=== PATIENT | male | born 1985 | race Caucasian/White ===

== ENCOUNTER 2020-12-31 05:14 | Emergency (ER) | payer SELFPAY ==
[2020-12-31 05:54] LABS: Absolute Lymphocytes (CBC) 2.3 K/uL (0.7-4.9); Basophils % 0.6 % (0-1.3); Lymphocytes % 14.4 % (15.3-44.8); MPV 8.9 fL (7.6-11.3); RBC Red Blood Cell Count 6.42 M/uL (4.33-5.43)
[2020-12-31] MEDS ORDERED: NA CHLORIDE 0.9% 1,000 ML ONE (06:06)
[2020-12-31 06:12] LABS: Protime INR 1.09
[2020-12-31 06:17] LABS: ALT/SGPT 41 U/L (12-78); AST/SGOT 20 U/L (15-37); Albumin 3.4 g/dL (3.4-5.0); Alkaline Phosphatase 86 U/L (45-117); BUN Blood Urea Nitrogen 13 mg/dL (7-18); Bicarbonate 26 mmol/L (21-32); Bilirubin Direct 0.1 mg/dL (0-0.2); Bilirubin Total 0.7 mg/dL (0.2-1.0); Glucose Level 108 mg/dL (74-106); Magnesium 2.2 mg/dL (1.8-2.4); NT PRO-BNP 8 pg/mL (<125); Potassium 4.4 mmol/L (3.5-5.1); Protein, Total 8.4 g/dL (6.4-8.2); Sodium Level 139 mmol/L (136-145); Troponin (Emerg Dept Use Only) 0.04 ng/mL (0.0-0.045)
[2020-12-31] MEDS ORDERED: CEFTRIAXONE 1000 MG/VIAL ONE (06:23)
[2020-12-31 06:29] LABS: Urine Bacteria 20-50 /HPF (NONE SEEN); Urine RBC >50 /HPF (NONE SEEN)
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
[2020-12-31] MEDS ORDERED: levoFLOXacin 750 MG TAB ONE (07:11)
[2020-12-31] MEDS ORDERED: TAMSULOSIN 0.4 MG SR CAP ONE (07:14)
[2020-12-31 07:15] VITALS: TEMP 98.1
[2020-12-31 07:16] VITALS: O2SAT 98
[2020-12-31 07:17] VITALS: BP 128/82
--- NOTE | 2020-12-31 07:56 | RAD REPORT ---
EXAM DESCRIPTION: [place] Single View12/31/2020 6:42 am CLINICAL HISTORY: Chest pain COMPARISON: 2015 FINDINGS: The lungs appear clear of acute infiltrate. The heart is normal size IMPRESSION: No acute abnormalities displayed
--- NOTE | 2020-12-31 10:41 | RAD REPORT ---
EXAM DESCRIPTION: CT - Stone Protocol - 12/31/2020 6:53 am CLINICAL HISTORY: Flank pain; Hematuria COMPARISON: None. TECHNIQUE: Abdomen/pelvis axial images acquired without contrast. Coronal and sagittal reformats cre ated. Exam performed according to departmental dose-optimization program which includes automated exp osure control, adjustment of mA and/or kV according to patient size, and/or use of iterative reconstr uction technique. FINDINGS: No free air or significant free fluid. Unremarkable noncontrast appearance of liver, gallbladder, spleen, pancreas, adrenals, No evidence of urinary stone. Left kidney shows extrarenal pelvis (normal variant). Urinary bladder shows mild diffuse wall thickening. Mild bilateral periureteral fat stranding. Mild bilateral seminal vesicle enlargement. Nonopacified stomach, small bowel, large bowel, and appendix appear grossly unremarkable. Abdominal aorta unremarkable noncontrast appearance. Multiple small Schmorl nodes throughout lower thoracic and the lumbar spine. IMPRESSION: 1. No CT evidence of urinary stone. 2. Urinary bladder shows mild diffuse wall thickening. This may represent inflammatory or infectious cystitis. Correlation with urinalysis would be helpful. 3. Mild bilateral periureteral fat stranding. This may represent inflammatory or infectious ureteritis. Electronically signed by: Eh Morrison MD 12/31/2020 6:45 AM BOLT CUTTER Due to temporary technical issues with the PACS/Fluency reporting system, reports are being signed by the in house radiologists without review as a courtesy to insure prompt reporting. The interpreting radiologist is fully responsible for the content of the report.
--- NOTE | 2020-12-31 12:29 | EKG ---
Test Date: 2020-12-31 Test Time: 05:41:41 Mutuel Machine Operator: ANDIE MEASUREMENT RESULTS: Intervals: Rate: 90 MN: 154 QRSD: 92 QT: 346 QTc: 423 [place]: P: 15 MN: 154 QRS: -40 T: 45 INTERPRETIVE STATEMENTS: Normal sinus rhythm Left axis deviation Voltage criteria for left ventricular hypertrophy Abnormal ECG Compared to ECG 08/30/2016 08:00:14 Left-axis deviation now present Left ventricular hypertrophy now present Electronically Signed On 12-31-20 12:27:41 COMPLIANCE REVIEWER by Isaac Butler
== END 2020-12-31 07:06 | disposition home or self-care (01) ==
LOC: ER 05:14
DX: N30.91 Cystitis, unspecified with hematuria (principal)
CPT/HCPCS: 36415; 71045; 74176; 76377; 80048; 80076; 81015; 82550; 83735; 83880; 84484; 85025; 85610; 87077; 87086; 87088; 87186; 93005; 96361; 96374; 99284; J7030

== ENCOUNTER 2023-04-05 20:29 | Emergency (ER) | payer SELFPAY ==
--- OUTSIDE RECORDS SUMMARY | 2023-04-05 21:20 | XMS REPORT | Continuity of Care Document ---
:1985 Author Organization [facility] t Address [address] [place] [address] [address] [place] [address] Care Team Providers Name Role Phone Kd Crane PA-C Attending Clinician [phone] KD CRANE Attending Clinician Unavailable Problems This patient has no known problems. Allergies, Adverse Reactions, Alerts Allergy Allergy Status Severity Reaction(s) Onset Inactive Treating Comm ents Source Name Type Date Date Clinician NO KNOWN Allergy Active [facility] Social History Social Habit Start Date Stop Date Quantity Comments Source Sex Assigned At [birth year] BETTYE Bonilla [facility]:00 [facility] Medications Ordered Filled Start Stop Current Ordering Indication Dosage Frequency Signature Comments Components Source Medication Medication Date Date Medication? Clinician (SIG) Name Name metFORMIN 2021-11- No 500mg Take [address] [facility] (GLUCOPHAGE 11-23 [facility] ) 500 MG 00:00: 23:59 (500 mg Medic al tablet 00 :00 total) by Center mouth 2 (two) times daily with breakfast and dinner. Vital Signs Vital Name Observation Time Observation Value Comments Source WEIGHT 2022-09-23 19:00:00 140.615 kg WEIGHT 2022-09-23 19:00:00 140.615 kg WEIGHT 2022-09-23 19:00:00 140.615 kg Systolic blood 2022-09-23 21:23:00 130 mm[Hg] [facility] Diastolic blood 2022-09-23 21:23:00 60 mm[Hg] [facility] Heart rate 2022-09-23 21:23:00 70 /min [facility] Body temperature 2022-09-23 21:23:00 36.67 [facility] Respiratory rate 2022-09-23 21:23:00 16 /min [facility] Body weight 2022-09-23 19:00:00 140.615 kg [facility] Oxygen saturation in 2022-09-23 19:00:00 97 /min [facility] Arterial blood by Medical Ce nter Pulse oximetry Procedures Procedure Date / Time Performed Performing Clinician Sourc e CT BRAIN WITHOUT IV 2022-09-23 19:48:00 Kd Crane I [facility] CONTRAST [facility] URINALYSIS [facility] 2022-09-23 19:41:00 Kd Crane [facility] CBC [facility] ED 2022-09-23 19:34:00 Kd Crane [facility] COMPLETE METABOLIC 2022-09-23 19:34:00 Kd Crane [facility] PANEL [facility] [address] ECG 12-LEAD 2022-09-23 19:33:[facility] 2022-09-23 19:33:35 Unknown, Hl7 [facility] POCT-GLUCOSE METER 2022-09-23 19:10:00 Kd Crane [facility] Plan of Care Planned Activity Planned Date Details Comments Source Future Scheduled 2023-07-[address] [facility] Test 00:00:00 (Season Ended) [code = [facility] INFLUENZA VACCINE (Season Ended)] Future Scheduled 2022-11-[address] [facility] Test 00:00:00 (12+) [code = [facility] DEPRESSION SCREENING (12+)] Future Scheduled 2022-09-[address] [facility] [address] [facility] 00:00:00 [facility] (procedure) [code = 28554457] Future Scheduled [address] [facility] 00:00:00 (procedure) [code = Medical [place] 62685825] Future Scheduled 2005 DTAP/TDAP/TD VACCINES [facility] 00:00:00 (1 - Tdap) [code = Medical C enter DTAP/TDAP/TD VACCINES (1 - Tdap)] Future Scheduled 2004 HEPATITIS C SCREENING [facility] 00:00:00 [code = HEPATITIS C Medical Center SCREENING] Future Scheduled [address] [facility] Test 00:00:00 [facility] Medical Cent[facility] r Screening (12+) [code = Tobacco Cessation Counseling and Screening (12+)] Future Scheduled [address] DIABETIC EYE EXAM [facility] Test 00:00:00 [code = DIABETIC EYE Medical Center EXAM] Future Scheduled [address] [facility] 00[facility] examination Medical Center (regime/therapy) [code = 234359860] Future Scheduled 1996 Urine screening for [facility] Test 00:00:00 protein (procedure) Medical Center [code = 476811926] Future Scheduled [address] [facility] Test 00:00:00 0-64 YRS (1 - PCV) Medical C enter [code = PNEUMOCOCCAL VACCINE 0-64 YRS (1 - PCV)] Future Scheduled 1987-01-26 COVID-19 VACCINE (#1) [facility] 00:00:00 [code = COVID-[address] VACCINE (#1)] Encounters Start End Encounter Admission Attending Care Care Encounter Source Date/Time Date/Time Type Type Clinicians Facility Department ID 2022-09-23 2022-09-23 Emergency [facility] [id number] [facility] [address] 19:01:00 21:23:00 [facility] 2022-09-23 2022-09-23 Emergency ER [facility] Emergency [id number] [facility] 19:01:00 21:23:00 [place] 2022-09-23 2022-09-23 Orders [facility] [id number] 00[facility]00[facility]00 00:00:00 [facility] 2022-09-23 2022-09-23 Travel [facility] [id number] [facility] 00[facility]00 [facility] Results Test Description Test Time Test Comments Results Result Sourc e Comments CT, BRAIN, WITHOUT 2022-09-23 Unlisted Reason CONTRAST 20:40:00 for Exam - Click Yes and Enter Reason [facility] - Below->No MEDICAL CENTERName: SHORTY HAMILTON : 1985 Sex: M *FINAL REPORT CT, BRAIN, WITHOUT CONTRAST CLINICAL INDICATION: Syncope, recurrent COMPARISON: None TECHNIQUE: Noncontrast axial CT imaging of the brain, skull and face. Coronal and sagittal reformats are provided. DOSE REDUCTION: Dose modulation, iterative reconstruction, and/or weight-based adjustment of the mA/kV was utilized to reduce the radiation dose to as low as reasonably achievable. FINDINGS: No intracranial hemorrhage, midline shift or mass effect. Midline structures are normally developed. Mild generalized parenchymal volume loss is present. No hydrocephalus. Orbits are within normal limits. No obstructive paranasal sinus disease. No calvarial fracture. Right frontal scalp swelling. Focal soft tissue thickening along the right frontal scalp. Partial opacification the right mastoid air cells. IMPRESSION: No acute intracranial findings Signed: Karri Chadwick MDReport Verified Date/Time: 09/23/2022 20:40:37 -Glucose meter 2022-09-23 19:23:17 Test Item Value Reference Range Interpretation Comme [facility] POC-Glucose Meter (test code = 238 mg/dL 70-110 H : [facility] AT [facility] ED [id number]) [address], [address] [facility] [address]: Photographic Laboratory Technician/Techni anahy ID = [id number] for Leandro Tapia Lab Interpretation (test code = Abnormal 60298-6) [facility] [id number] 19:23:17 Test Item Value Reference Range Interpretation Comments POC-GLUCOSE METER 238 mg/dL 70-110 H : TESTED A T [facility] (BEAKER) (test code JUDSON[facility]AHBAZSAM[facility] [address], [address] = 1538) [address] [facility] [place] [address]: Photographic Laboratory Technician/Techni anahy ID = [id number] for Keisha Rajan
[2023-04-05 21:39] LABS: Hematocrit 44.6 % (39.6-49.0); Lymphocytes % 32.5 % (15.3-44.8); MCV 89.6 fL (80-100); MPV 9.8 fL (7.6-11.3); RBC Red Blood Cell Count 4.98 M/uL (4.33-5.43)
[2023-04-05 21:56] LABS: Specific Gravity 1.026 (1.005-1.030); Urine Bilirubin NEGATIVE (Negative); Urine Blood Negative (Negative); Urine Clarity Clear (Clear); Urine Color Colorless (Yellow); Urine Glucose 4+ (Over) (Negative); Urine Protein NEGATIVE (Negative); Urine Urobilinogen Normal (Normal); Urine pH 6.5 (5.0-7.0)
[2023-04-05 22:06] LABS: Potassium 4.3 mEq/L (3.5-5.1)
[2023-04-05] MEDS ORDERED: NA CHLORIDE 0.9% 1,000 ML ONE ×2 (22:14→22:50)
[2023-04-05] MEDS ORDERED: INSULIN -REGULAR HUMAN 50 UNIT/0.5 ML ML ONE (22:49)
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
[2023-04-06 01:36] VITALS: TEMP 98.3
[2023-04-06 01:41] VITALS: BP 110/66; O2SAT 97
--- NOTE | 2023-04-07 07:18 | EKG ---
Test Date: 2023-04-05 Test Time: 21:32:27 Cook Tortilla: JUAN LUIS MEASUREMENT RESULTS: Intervals: Rate: 87 SD: 158 QRSD: 96 QT: 362 QTc: 435 [place]: P: 49 SD: 158 QRS: -41 T: 30 INTERPRETIVE STATEMENTS: Normal sinus rhythm Left axis deviation Voltage criteria for left ventricular hypertrophy Abnormal ECG Compared to ECG 04/05/2023 21:31:25 Sinus tachycardia no longer present Ventricular premature complex(es) no longer present Electronically Signed On 04-07-23 07:14:24 CDT by Isaac Butler
--- NOTE | 2023-04-07 07:19 | EKG ---
Test Date: 2023-04-05 Test Time: 21:31:25 Cash Clerk: JUAN LUIS MEASUREMENT RESULTS: Intervals: Rate: 104 AR: 144 QRSD: 88 QT: 326 QTc: 428 [place]: P: 48 AR: 144 QRS: -44 T: 42 INTERPRETIVE STATEMENTS: Poor data quality, interpretation may be adversely affected Sinus tachycardia with occasional premature ventricular complexes Left axis deviation Voltage criteria for left ventricular hypertrophy Abnormal ECG Compared to ECG 12/31/2020 05:41:41 Ventricular premature complex(es) now present Sinus rhythm no longer present Electronically Signed On 04-07-23 07:14:25 CDT by Isaac Butler
== END 2023-04-06 00:39 | disposition home or self-care (01) ==
LOC: ER 20:29
DX: E11.65 Type 2 diabetes mellitus with hyperglycemia (principal); F17.210 Nicotine dependence, cigarettes, uncomplicated
CPT/HCPCS: 36415; 80048; 81003; 82947; 85025; 93005; 96374; 99284; J1815; J7030

== ENCOUNTER 2023-09-16 17:30 | Emergency (ER) | payer SELFPAY ==
--- OUTSIDE RECORDS SUMMARY | 2023-09-16 17:37 | XMS REPORT | Continuity of Care Document ---
:1985 Author Organization [facility] t Address [address] [place] [address] Care Team Providers Name Role Phone FARRUKH CRANE Attending Clinician Unavailable Farrukh Crane PA-C Attending Clinician [phone] Problems This patient has no known problems. Allergies, Adverse Reactions, Alerts Allergy Allergy Status Severity Reaction(s) Onset Inactive Treating Comm ents Source Name Type Date Date Clinician NO KNOWN Allergy Active [facility] Social History Social Habit Start Date Stop Date Quantity Comments Source Sexual orientation [facility] Sex Assigned At [birth year] [facility] 00:00[facility]00 [facility]00 [facility] Medications Ordered Filled Start Stop Current Ordering Indication Dosage Frequency Signature Comments Components Source Medication Medication Date Date Medication? Clinician (SIG) Name Name metFORMIN 2021-11- No 500mg Take [address] [facility] (GLUCOPHAGE 11-[facility] ) 500 MG 00:00: 23:59 (500 mg Medic al tablet 00 :00 total) by Center mouth 2 (two) times daily with breakfast and dinner. metFORMIN 2021-11 No 500mg Take [address] [facility] (GLUCOPHAGE [...] kg Systolic blood 2022-09-23 21:23:00 130 mm[Hg] [facility] Diastolic blood 2022-09-23 21:23:00 60 mm[Hg] [facility] Heart rate 2022-09-23 21:23:00 70 /min [facility] Body temperature 2022-09-23 21:23:00 36.67 [facility] Respiratory rate 2022-09-23 21:23:00 16 /min [facility] Body weight 2022-09-23 19:00:00 140.615 kg [facility] Oxygen saturation in 2022-09-23 19:00:00 97 /min [facility] Arterial blood by Medical Ce nter Pulse oximetry Procedures Procedure Date / Time Performed Performing Clinician [facility] e CT BRAIN WITHOUT IV 2022-09-23 19:48:00 Farrukh Crane [facility] CONTRAST [facility] URINALYSIS [facility] 2022-09-23 19:41:00 Farrukh Crane [facility] CBC [facility] 2022-09-23 19:34:00 Farrukh Crane [facility] COMPLETE METABOLIC 2022-09-23 19:34:00 Farrukh Crane [facility] PANEL [facility] Medical Birdie ter ECG 12-LEAD 2022-09-23 19:33:35 Farrukh Crane [facility] ECG 12-LEAD 2022-09-23 19:33:35 Unknown, [facility] Doctor [facility] ECG 12-LEAD 2022-09-23 19:33:35 Unknown, [facility] Doctor [facility] POCT-GLUCOSE METER 2022-09-23 19:10:00 Farrukh Crane [facility] Plan of Care Planned Activity Planned Date Details Comments Source Future Scheduled 2023-07-02 INFLUENZA VACCINE (Season [facility] Test 00:00:00 Ended) [code = INFLUENZA Med ical Center VACCINE (Season Ended)] Future Scheduled 2023-07-02 Influenza Vaccine (#1) [facility] 00:00:00 [code = Influenza Vaccine Me dical Center (#1)] Future Scheduled 2022-11-[address] [facility] Test 00:00:00 (12+) [code = DEPRESSION Med ical Center SCREENING (12+)] Future Scheduled 2022-11-[address] [facility] Test 00:00:00 (12+) [code = DEPRESSION Med ical Center SCREENING (12+)] Future Scheduled 2022-09-[address] [facility] 00:00:00 measurement (procedure) [facility] [code = 02899027] Future Scheduled 2022-09-[address] [facility] Test 00:00:00 measurement (procedure) [facility] Center [code = 89060544] Future Scheduled 2021 Lipid panel (procedure) [facility] Test 00:00:00 [code = 50734275] Medical Ce nter Future Scheduled 2021 Lipid panel (procedure) [facility] Test 00:00:00 [code = 62225426] Medical Ce nter Future Scheduled 2005 DTAP/TDAP/TD VACCINES ([address] [facility] Test 00:00:00 - Tdap) [code = Medical Cent er DTAP/TDAP/TD VACCINES (1 - Tdap)] Future Scheduled 2005 DTAP/TDAP/TD VACCINES ([address] [facility] Test 00:00:00 - Tdap) [code = Medical Cent er DTAP/TDAP/TD VACCINES (1 - Tdap)] Future Scheduled 2004 HEPATITIS C SCREENING [facility] 00:00:00 [code = HEPATITIS C Medical Center SCREENING] Future Scheduled 2004 HEPATITIS C SCREENING [facility] 00:00:00 [code = HEPATITIS C Medical Center SCREENING] Future Scheduled [address] [facility] Test 00:00:00 virus screening Medical Cent er (procedure) [code = 428057993] Future Scheduled [address] [facility] Test 00:00:00 Counseling and Screening Med ical Center (12+) [code = Tobacco Cessation Counseling and Screening (12+)] Future Scheduled [address] [facility] Test 00:00:00 Counseling and Screening [facility] ical Center (12+) [code = Tobacco Cessation Counseling and Screening (12+)] Future Scheduled 1996 DIABETIC EYE EXAM [code = [facility] Test 00:00:00 DIABETIC EYE EXAM] Medical C enter Future Scheduled 1996 Diabetic foot examination [facility] Test 00:00:00 (regime/therapy) [code = Med ical Center [id number]] Future Scheduled 1996 Urine screening for [facility] Test 00:00:00 protein (procedure) [code Me dical Center = 964314237] Future Scheduled 1996 DIABETIC EYE EXAM [code = [facility] Test 00:00:00 DIABETIC EYE EXAM] Medical C enter Future Scheduled 1996 Diabetic foot examination [facility] Test 00:00:00 (regime/therapy) [code = Med ical Center [id number]] Future Scheduled 1996 Urine screening for [facility] Test 00:00:00 protein (procedure) [code Wa dical Center = 622920644] Future Scheduled 1992 PNEUMOCOCCAL VACCINE 0-[address] [facility] Test 00:00:00 YRS (1 - PCV) [code = Medica l Center PNEUMOCOCCAL VACCINE 0-64 YRS (1 - PCV)] Future Scheduled 1992 Pneumococcal Vaccine: [facility] Test 00:00:00 0-64 Years (1 - PCV) Medical Center [code = Pneumococcal Vaccine: 0-64 Years (1 - PCV)] Future Scheduled 1987-01-26 COVID-19 VACCINE (#1) [facility] 00:00:00 [code = COVID-19 VACCINE Med ical Center (#1)] Future Scheduled 1987-01-26 COVID-19 VACCINE (#1) [facility] 00:00:00 [code = COVID-19 VACCINE Med ical Center (#1)] Encounters Start End Encounter Admission Attending Care Care Encounter Source Date/Time Date/Time Type Type Clinicians Facility Department ID 2022-09-23 2022-09-23 Emergency ER [facility] Emergency [id number] [facility] 19:01:00 21:23:00 FARRUKH 2022-09-23 2022-09-23 Emergency Abraham, [facility] [id number] 19:01:00 21:23:00 [facility] 2022-09-23 2022-09-23 Emergency ER Abraham, [facility] [id number] [address] 19:01:00 21:23:00 [facility] 2022-09-23 2022-09-23 Orders [facility] [id number] 00:00:00 00:00:00 [facility] 2022-09-23 2022-09-23 Travel [facility] [id number] [facility]00 [facility] 2022-09-23 2022-09-23 Orders [facility] [id number] 00:00:00 00:00:00 [facility] 2022-09-23 2022-09-23 Travel [facility] [id number] [facility]00 [facility] Results Test Description Test Time Test Comments Results Result Sour e Comments CT, BRAIN, WITHOUT 2022-09-23 Unlisted Reason CONTRAST 20:40:00 for Exam - Click Yes and Enter Reason [facility] - Below->No [facility] CENTER[facility]: [facility] : [...] IMPRESSION: No acute intracranial findings Signed: Karri Yi [facility] Verified Date/Time: 09/23/2022 20:40:37 -Glucose meter 2022-09-23 19:23:17 Test Item Value Reference Range Interpretation Comme nts POC-Glucose Meter (test code = 238 mg/dL 70-110 H : TESTED AT [facility] ED [address]) [address] [facility] [address]: Quality Worker/Techni anahy ID = [id number] for Leandro Tapia Lab Interpretation (test code = Abnormal 84996-7) [facility] [id number] 19:23:17 Test Item Value Reference Range Interpretation Comments POC-Glucose Meter (test 238 mg/dL 70-110 H : TE STED AT [facility] code = 1538) [place] [facility] [address] [place] [address]: Quality Worker/Techni anahy ID = [id number] for Ti Tapia Lab Interpretation (test Abnormal code = 30832-2) [facility] [id number] 19:23:17 Test Item Value Reference Range Interpretation Comments POC-GLUCOSE METER 238 mg/dL 70-110 H : TESTED A T [facility] (BEAKER) (test code [facility] [address] = [address]38) [address] [facility] [place] [address]: Quality Worker/Techni anahy ID = [id number] for Keisha Rajan
[2023-09-16] MEDS ORDERED: NA CHLORIDE 0.9% 3,000 ML ONE (18:33)
[2023-09-16 18:43] LABS: Absolute Lymphocytes (CBC) 3.2 K/uL (0.7-4.9); Hematocrit 44.6 % (39.6-49.0); Lymphocytes % 27.3 % (15.3-44.8); MCV 88.5 fL (80-100); MPV 9.4 fL (7.6-11.3); Platelets 210 thou/uL (152-406); RBC Red Blood Cell Count 5.04 M/uL (4.33-5.43)
[2023-09-16 18:54] LABS: Protime INR 1.04
[2023-09-16 19:06] LABS: Albumin 3.4 g/dL (3.4-5.0); Bilirubin Total 0.3 mg/dL (0.2-1.0)
[2023-09-16 19:13] LABS: Specific Gravity > 1.030 (1.005-1.030); Urine Bilirubin NEGATIVE (Negative); Urine Blood Negative (Negative); Urine Clarity Clear (Clear); Urine Color Colorless (Yellow); Urine Glucose 4+ (Over) (Negative); Urine Protein NEGATIVE (Negative); Urine Urobilinogen Normal (Normal); Urine pH 5.5 (5.0-7.0)
[2023-09-16] MEDS ORDERED: INSULIN REGULAR (HUMAN) 100 UNIT/ML ONE ×2 (19:31→20:24)
[2023-09-16] MEDS ORDERED: METFORMIN HCL 500 MG TAB ONE (20:29)
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
[2023-09-16 21:33] VITALS: TEMP 97.7
[2023-09-16 21:38] VITALS: BP 123/91; O2SAT 97
--- NOTE | 2023-09-17 14:24 | EKG ---
Test Date: 2023-09-16 Test Time: 18:43:21 General Internist And Physician Leader: ABHIJIT Ortiz MEASUREMENT RESULTS: Intervals: Rate: 96 CO: 156 QRSD: 100 QT: 356 QTc: 449 [place]: P: 52 CO: 156 QRS: -46 T: 39 INTERPRETIVE STATEMENTS: Normal sinus rhythm Left anterior fascicular block Voltage criteria for left ventricular hypertrophy Nonspecific T wave abnormality Abnormal ECG Compared to ECG 04/05/2023 21:32:27 Left anterior fascicular block now present T-wave abnormality now present Left-axis deviation no longer present Electronically Signed On 09-17-23 14:22:09 ANIMAL RIDE ATTENDANT by Domenic Fisher
== END 2023-09-16 21:14 | disposition home or self-care (01) ==
LOC: ER 17:30
DX: E11.65 Type 2 diabetes mellitus with hyperglycemia (principal)
CPT/HCPCS: 36415; 80053; 81003; 82947; 83605; 85025; 85610; 85730; 87040; 93005; 96361; 96374; 99285; J1815; J7030

== ENCOUNTER 2023-09-17 03:56 | Emergency (ER) | payer SELFPAY ==
--- OUTSIDE RECORDS SUMMARY | 2023-09-17 04:00 | XMS REPORT | Continuity of Care Document ---
:1985 Author Organization [facility] t Address [address] [place] [address] Care Team Providers Name Role Phone KD CRANE Attending Clinician Unavailable Kd Crane PA-C Attending Clinician [phone] Problems This patient has no known problems. Allergies, Adverse Reactions, Alerts Allergy Allergy Status Severity Reaction(s) Onset Inactive Treating Comm ents Source Name Type Date Date Clinician NO KNOWN Allergy Active [facility] Social History Social Habit Start Date Stop Date Quantity Comments Source Sexual orientation [facility] Sex Assigned At [birth year] [facility] 00:00:00 00:00:00 [facility] Medications Ordered Filled Start Stop Current Ordering Indication Dosage Frequency Signature Comments Components Source Medication Medication Date Date Medication? Clinician (SIG) Name Name metFORMIN 2021-11- No 500mg Take [address] [facility] (GLUCOPHAGE -[facility] ) 500 MG 00:00: 23:59 (500 mg Medic al tablet 00 :00 total) by Center mouth 2 (two) times daily with breakfast and dinner. metFORMIN 2021-11- No 500mg Take [address] [facility] (GLUCOPHAGE -09-23 [facility] ) 500 MG 00:00: 23:59 (500 mg Medic al tablet 00 :00 total) by Center mouth 2 (two) times daily with breakfast and dinner. metFORMIN 2021-11- No 500mg Take 1 [facility] [...] kg Systolic blood 2022-09-23 21:23:00 130 mm[Hg] [facility] Diastolic blood 2022-09-23 21:23:00 60 mm[Hg] [facility] Heart rate 2022-09-23 21:23:00 70 /min [facility] Body temperature 2022-09-23 21:23:00 36.67 Crys [facility] Respiratory rate 2022-09-23 21:23:00 16 /min [facility] Body weight 2022-09-23 19:00:00 140.615 kg [facility] Oxygen saturation in 2022-09-23 19:00:00 97 /min [facility] Arterial blood by Medical Ce nter Pulse oximetry Procedures Procedure Date / Time Performed Performing Clinician [facility] e CT BRAIN WITHOUT IV 2022-09-23 19:48:[address] [facility] CONTRAST [facility] URINALYSIS [facility] 2022-09-23 19:41:00 Kd Crane [facility] CBC [facility] 2022-09-23 19:34:00 Kd Crane [facility] COMPLETE METABOLIC 2022-09-23 19:34:00 Kd Crane [facility]ie ter ECG 12-LEAD 2022-09-23 19:33:35 Kd Crane [facility] ECG 12-LEAD 2022-09-23 19:33:35 Unknown, H[facility] Doctor [facility] ECG 12-LEAD 2022-09-23 19:33:35 Unknown, [facility] Doctor [facility] POCT-GLUCOSE METER 2022-09-23 19:10:00 [facility] Plan of Care Planned Activity Planned Date Details Comments Source Future Scheduled 2023-07-02 INFLUENZA VACCINE (Season [facility] Test 00:00:00 Ended) [code = INFLUENZA Med ical Center VACCINE (Season Ended)] Future Scheduled 2023-07-02 Influenza Vaccine (#1) [facility] 00:00:00 [code = Influenza Vaccine Me dical Center (#1)] Future Scheduled 2023-07-02 Influenza Vaccine (#1) C [...] [facility] 00:[facility]:00 measurement (procedure) [facility] [code = 75346224] Future Scheduled 2022-09-[address] [facility] 00:00:00 measurement (procedure) [facility] [code = 08075432] Future Scheduled 2022-09-[address] [facility] 00:00:00 measurement (procedure) [facility] [code = 06136086] Future Scheduled 2021 Lipid panel (procedure) [facility] Test 00:00:00 [code = 01601147] Medical Ce nter Future Scheduled 2021 Lipid panel (procedure) [facility] Test 00:00:00 [code = [id number]] Medical Ce nter Future Scheduled 2021 Lipid panel (procedure) [facility] Test 00:00:00 [code = 37795079] Medical Ce nter Future Scheduled 2005 DTAP/TDAP/TD [...] screening Medical Cent er (procedure) [code = 555965534] Future Scheduled [address] [facility] 00:00:00 virus screening Medical Cent er (procedure) [code = 928551170] Future Scheduled [address] [facility] Test 00:00:00 Counseling and Screening [facility] (12+) [code = Tobacco Cessation Counseling and Screening (12+)] Future Scheduled [address] [facility] Test 00:00:00 Counseling and Screening [facility] (12+) [code = Tobacco Cessation Counseling and Screening (12+)] Future Scheduled [address] [facility] Test 00:00:00 Counseling and Screening Med [facility] (12+) [code = Tobacco Cessation Counseling and Screening (12+)] Future Scheduled 1996 DIABETIC EYE EXAM [code = [facility] Test 00:00:00 DIABETIC EYE EXAM] Medical C enter Future Scheduled 1996 Diabetic foot examination [facility] Test 00:00:00 (regime/therapy) [code = Med ical Center [id number]] Future Scheduled 1996 Urine screening for [facility] Test 00:00:00 protein (procedure) [code Me dicma Center = 469920915] Future Scheduled 1996 DIABETIC EYE EXAM [code = [facility] Test 00:00:00 DIABETIC EYE EXAM] Medical C enter Future Scheduled 1996 Diabetic foot examination [facility] Test 00:00:00 (regime/therapy) [code = Med ical Center [id number]] Future Scheduled 1996 Urine screening for [facility] Test 00:00:00 protein (procedure) [code Ma dicma Center = 628828288] Future Scheduled 1996 DIABETIC EYE EXAM [code = [facility] Test 00:00:00 DIABETIC EYE EXAM] Medical C enter Future Scheduled 1996 Diabetic foot examination [facility] Test 00:00:00 (regime/therapy) [code = [facility] [id number]] Future Scheduled 1996 Urine screening for [facility] Test 00:00:00 protein (procedure) [code Ma dicma Center = 901471973] Future Scheduled 1992 PNEUMOCOCCAL VACCINE 0-[address] [facility] Test 00:00:00 YRS (1 - PCV) [code = Medica l Center PNEUMOCOCCAL VACCINE 0-64 YRS (1 - PCV)] Future Scheduled 1992 Pneumococcal Vaccine: [facility] 00:00:00 0-64 Years (1 - PCV) Medical Center [code = Pneumococcal Vaccine: 0-64 Years (1 - PCV)] Future Scheduled 1992 Pneumococcal Vaccine: [facility] 00:00:00 0-64 Years (1 - PCV) Medical Center [code = Pneumococcal Vaccine: 0-64 Years (1 - PCV)] Future Scheduled 1987-01-26 COVID-19 VACCINE (#1) [facility] 00:00:00 [code = COVID-19 VACCINE [facility] ical Center (#1)] Future Scheduled 1987-01-26 COVID-19 VACCINE (#1) [facility] 00:00:00 [code = COVID-19 VACCINE [facility] ical [facility] (#1)] Future Scheduled 1987-01-26 COVID-19 VACCINE (#1) [facility] 00:00:00 [code = COVID-19 VACCINE [facility] ical [facility] (#1)] Encounters Start End Encounter Admission Attending Care Care Encounter Source Date/Time Date/Time Type Type Clinicians Facility Department ID 2022-09-23 2022-09-23 [facility] Emergency [id number] [facility] 19:01:00 21:23:00 [place] 2022-09-23 2022-09-23 Emergency Abraham, [facility] [id number] [facility] 19:01:00 21:23:00 [facility] 2022-09-23 2022-09-23 Emergency ER Abraham [facility] [id number] [facility] [address] 19:01:00 21:23:00 [facility] 2022-09-23 2022-09-23 Orders [facility] [id number] 00:00:00 00:00:00 [facility] 2022-09-23 2022-09-23 Travel [facility] [id number] [facility] 00[facility]00 [facility] 2022-09-23 2022-09-23 Orders [facility] [id number] 00:00:00 00:00:00 [facility] 2022-09-23 2022-09-23 Travel [facility] [id number] [facility] 00[facility]00 [facility] Results Test Description Test Time Test Comments Results Result Sour e Comments CT, BRAIN, WITHOUT 2022-09-23 Unlisted Reason CONTRAST 20:40:00 for Exam - Click Yes and Enter Reason [facility] - Below-> MEDICAL CENTERName: SHORTY HAMILTON : 1985 Sex: [...] IMPRESSION: No acute intracranial findings Signed: Karri Yiyale [facility] Verified Date/Time: 09/23/2022 20:40:37 -Glucose meter 2022-09-23 19:23:17 Test Item Value Reference Range Interpretation Comme nts POC-Glucose Meter (test code = 238 mg/dL 70-110 H : TESTED AT [facility] ED 540 1538) I, [address] [facility] [address]: Clinical Project Manager/Techni anahy ID = [id number] for Leandro Tapia Lab Interpretation (test code = Abnormal 31002-3) [facility]-Glucose [id number] 19:23:17 Test Item Value Reference Range Interpretation Comments POC-Glucose Meter (test 238 mg/dL 70-110 H : TE STED AT [facility] code = 1538) [place] [facility] [address] [facility] [address]: Clinical Project Manager/Techni anahy ID = [id number] for Ti Tapia Lab Interpretation (test Abnormal code = 71336-4) [facility] [id number] 19:23:17 Test Item Value Reference Range Interpretation Comments POC-Glucose Meter (test 238 mg/dL 70-110 H : TE STED AT [facility] code = 1538) [place] [facility] [address] [facility] [address]: Clinical Project Manager/Techni anahy ID = [id number] for Ti Tapia Lab Interpretation (test Abnormal code = 79803-0) [facility]SE [id number] 19:23:17 Test Item Value Reference Range Interpretation Comments POC-GLUCOSE METER 238 mg/dL 70-110 H : TESTED A T [facility] (BEAKER) (test code [facility]UDSON[facility]BAZ[facility] [address] = 1538) [address] [place] [facility] [place] [address]: Clinical Project Manager/Techni anahy ID = [id number] for Keisha Rajan
[2023-09-17] MEDS ORDERED: KETOROLAC 30 MG/ML INJ ONE (04:37)
[2023-09-17] MEDS ORDERED: TRAMADOL HCL 50 MG TAB ONE (04:37)
[2023-09-17] MEDS ORDERED: PROMETHAZINE 25 MG TABLET ONE (04:37)
[2023-09-17 04:46] LABS: Absolute Lymphocytes (CBC) 2.7 K/uL (0.7-4.9); Hematocrit 43.1 % (39.6-49.0); Lymphocytes % 27.3 % (15.3-44.8); MCV 87.8 fL (80-100); MPV 9.6 fL (7.6-11.3); Platelets 201 thou/uL (152-406); RBC Red Blood Cell Count 4.91 M/uL (4.33-5.43)
[2023-09-17 04:49] LABS: Protime INR 1.02
[2023-09-17] MEDS ORDERED: CYCLOBENZAPRINE 10 MG TAB ONE (05:00)
[2023-09-17] MEDS ORDERED: NA CHLORIDE 0.9% 1,000 ML ONE (05:01)
[2023-09-17] MEDS ORDERED: INSULIN REGULAR (HUMAN) 100 UNIT/ML ONE (05:01)
[2023-09-17 05:10] LABS: ALT/SGPT 85 U/L (16-61); AST/SGOT 28 U/L (15-37); Albumin 3.2 g/dL (3.4-5.0); Alkaline Phosphatase 137 U/L (45-117); BUN Blood Urea Nitrogen 13 mg/dL (7-18); Bicarbonate 26 mEq/L (21-32); Bilirubin Total 0.3 mg/dL (0.2-1.0); Glomerular Filtration Rate 117 ml/min (=/>90); Magnesium 1.8 mg/dL (1.6-2.4); NT PRO-BNP 20 pg/mL (<125); Potassium 3.9 mEq/L (3.5-5.1); Protein, Total 7.5 g/dL (6.4-8.2); Sodium Level 131 mEq/L (136-145); Troponin High Sensitivity 44.7 pg/mL (<58.9)
[2023-09-17 05:12] LABS: Bilirubin Direct < 0.1 mg/dL (0-0.2); Bilirubin Indirect, Calculated ND mg/dL (0.2-0.8); Glucose Level 403 mg/dL (74-106)
[2023-09-17 05:14] LABS: Specific Gravity > 1.030 (1.005-1.030); Urine Bacteria None Seen /HPF (<20); Urine Bilirubin NEGATIVE (Negative); Urine Blood Negative (Negative); Urine Clarity Clear (Clear); Urine Color Colorless (Yellow); Urine Glucose 4+ (Over) (Negative); Urine Protein NEGATIVE (Negative); Urine RBC <5 /HPF (None Seen); Urine Urobilinogen Normal (Normal)
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
[2023-09-17 06:43] VITALS: TEMP 97.9
[2023-09-17 06:46] VITALS: BP 118/70; O2SAT 97
--- NOTE | 2023-09-17 11:21 | RAD REPORT ---
EXAM DESCRIPTION: CT - Abdomen Pelvis Wo Contrast - 09/17/2023 6:48 am CLINICAL HISTORY: The patient is 38 years old and is Male; right flank pain TECHNIQUE: Axial computed tomography images of the abdomen and pelvis without intravenous contrast. Sagittal and coronal reformatted images were created and reviewed. This CT exam was performed usi ng one or more of the following dose reduction techniques: automated exposure control, adjustment o f the mA and/or kV according to patient size, and/or use of iterative reconstruction technique. COMPARISON: No relevant prior studies available. FINDINGS: Lung bases: Unremarkable. No mass. No consolidation. ABDOMEN: Liver: Enlarged fatty liver. Gallbladder and bile ducts: Unremarkable. No calcified stones. No ductal dilation. Pancreas: Unremarkable. No ductal dilation. Spleen: Unremarkable. No splenomegaly. Adrenals: Unremarkable. No mass. Kidneys and ureters: Punctate left nephrolithiasis. No hydronephrosis or ureter stone. The kidneys are otherwise unremarkable. Stomach and bowel: No bowel dilatation or obstruction. No bowel wall thickening. PELVIS: Appendix: The visualized appendix is normal. No pericecal inflammation to suggest acute appendici tis. Bladder: Unremarkable. No stones. Reproductive: Unremarkable as visualized. ABDOMEN and PELVIS: Intraperitoneal space: Unremarkable. No free air. No significant fluid collection. Bones/joints: Old L2 compression fracture. No acute fracture visualized. No dislocation. Soft tissues: Unremarkable. Vasculature: Unremarkable. No abdominal aortic aneurysm. Lymph nodes: No pathologically enlarged lymph nodes. IMPRESSION: 1. Punctate left nephrolithiasis. No hydronephrosis or ureter stone. 2. Enlarged fatty liver. 3. Additional non-emergent findings as above. Electronically signed by: Jimena Camarillo MD 09/17/2023 04:59 AM GRAPPLE OPERATOR Due to temporary technical issues with the PACS/Fluency reporting system, reports are being signed by the in house radiologists without review as a courtesy to insure prompt reporting. The interpreting radiologist is fully responsible for the content of the report.
--- NOTE | 2023-09-17 13:44 | RAD REPORT ---
EXAM DESCRIPTION: RAD - Chest Single View - 09/17/2023 4:29 am CLINICAL HISTORY: The patient is 38 years old and is Male; CHEST PAIN TECHNIQUE: Frontal view of the chest. COMPARISON: No relevant prior studies available. FINDINGS: Lungs: Unremarkable. No consolidation. Pleural space: Unremarkable. No pneumothorax. Heart: Unremarkable. Mediastinum: Unremarkable. Normal mediastinal contour. Bones/joints: No acute findings. IMPRESSION: No acute findings in the chest. Electronically signed by: Ochoa Barba MD 09/17/2023 04:38 AM CUSTOMS OFFICER Due to temporary technical issues with the PACS/Fluency reporting system, reports are being signed by the in house radiologists without review as a courtesy to insure prompt reporting. The interpreting radiologist is fully responsible for the content of the report.
== END 2023-09-17 06:38 | disposition home or self-care (01) ==
LOC: ER 03:56
DX: E11.65 Type 2 diabetes mellitus with hyperglycemia (principal); M54.50 Low back pain, unspecified; Z87.81 Personal history of (healed) traumatic fracture
CPT/HCPCS: 36415; 71045; 74176; 80048; 80076; 81001; 82947; 83735; 83880; 84484; 85025; 85610; 99285; J1815; J7030; Q0169

== ENCOUNTER 2024-05-06 05:15 | Inpatient (IN) | payer SELFPAY ==
[2024-05-06] MEDS ORDERED: LIDOCAINE 1% 20 ML MDV ONE (05:20)
[2024-05-06] MEDS ORDERED: THIAMINE 200 MG/2 ML INJ ONE (05:54)
[2024-05-06] MEDS ORDERED: CEFAZOLIN SODIUM 1 GM/VIAL ONE (05:54)
[2024-05-06] MEDS ORDERED: MULTIVITAMINS 10 ML VIAL (INJ) IV ONE (05:54)
[2024-05-06] MEDS ORDERED: FOLIC ACID 5 MG/ML VIAL ONE (05:55)
[2024-05-06] MEDS ORDERED: NA CHLORIDE 0.9% 2,000 ML ONE (05:56)
[2024-05-06] MEDS ORDERED: TDAP (DIPHTH,PERTUSS(ACELL),TET VAC) 0.5 ML VIAL IMVAC ONE ×2 (05:56→06:26)
[2024-05-06 06:24] LABS: Absolute Basophils 0.1 K/uL (0-0.5); Absolute Lymphocytes (CBC) 2.1 K/uL (0.7-4.9); Absolute Monocytes 1.3 K/uL (0.1-1.3); Basophils % 0.5 % (0-1.3); Eosinophils % 0.1 % (0-4.4); Hematocrit 41.1 % (39.6-49.0); Hemoglobin 13.6 g/dL (13.6-17.9); Lymphocytes % 8.9 % (15.3-44.8); MCH 29.4 pg (27.0-35.0); MCV 89.1 fL (80-100); MPV 8.2 fL (7.6-11.3); Monocytes % 5.5 % (3.3-12.3); Nucleated Red Blood Cells % 0.1 % (0-0); Platelets 333 thou/uL (152-406); RBC Red Blood Cell Count 4.61 M/uL (4.33-5.43); Red Cell Distribution Width 14.5 % (12.1-15.2)
[2024-05-06 06:53] LABS: ALT/SGPT 76 U/L (16-61); AST/SGOT 55 U/L (15-37); Albumin 3.1 g/dL (3.4-5.0); Albumin/Globulin Ratio 0.7 (1.1-1.8); Alkaline Phosphatase 73 U/L (45-117); Anion Gap 8.1 mEq/L (5.0-15.0); BUN Blood Urea Nitrogen 12 mg/dL (7-18); Bicarbonate 27 mEq/L (21-32); Bilirubin Total 0.4 mg/dL (0.2-1.0); Globulin 4.2 g/dL (2.3-3.5); Glomerular Filtration Rate 78 ml/min (=/>90); Glucose Level 157 mg/dL (74-106); Lipase 24 U/L (13-75); Potassium 4.1 mEq/L (3.5-5.1); Protein, Total 7.3 g/dL (6.4-8.2); Sodium Level 137 mEq/L (136-145)
[2024-05-06 06:54] LABS: Bilirubin Direct < 0.2 mg/dL (0-0.2); Bilirubin Indirect, Calculated 0.2 mg/dL (0.2-0.8)
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
--- NOTE | 2024-05-06 07:15 | RAD REPORT ---
EXAM DESCRIPTION: RAD - Hand Left 3 View - 05/06/2024 6:55 am CLINICAL HISTORY: PAIN COMPARISON: <Comparisons> FINDINGS: No acute fracture or dislocation seen.
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
[2024-05-06] MEDS ORDERED: AZITHROMYCIN 500 MG INJ IVPB ONE (07:18)
[2024-05-06] MEDS ORDERED: NA CHLORIDE 0.9% 1,000 ML ONE (07:18)
[2024-05-06] MEDS ORDERED: CEFTRIAXONE 2000 MG/VIAL ONE (07:18)
[2024-05-06] MEDS ORDERED: FAMOTIDINE 20 MG/2 ML VIAL IV ONE (07:18)
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
[2024-05-06] MEDS ORDERED: NA CHLORIDE 0.9% 250 ML ONE (07:19)
[2024-05-06 07:41] LABS: SARS-CoV-2 Antigen CONTROL BLUE LINE VIS/BG OK; SARS-CoV-2 Antigen Rapid Res Negative (Negative)
[2024-05-06] MEDS ORDERED: NA CHLORIDE 0.9% 100 ML ONE (07:56)
[2024-05-06 08:06] LABS: Specific Gravity > 1.030 (1.005-1.030); Sqamous Epithelial <5 /HPF (None Seen); Urine Bacteria <20 /HPF (<20); Urine Bilirubin NEGATIVE (Negative); Urine Blood Trace (Negative); Urine Clarity Turbid (Clear); Urine Color Light-Yellow (Yellow); Urine Culture Reflex Order NOT NEEDED; Urine Glucose NEGATIVE (Negative); Urine Ketones NEGATIVE (Negative); Urine Microscopic Reflex YN ORDER UMIC; Urine Mucus Slight /HPF (None Seen); Urine Nitrite NEGATIVE (Negative); Urine Protein 1+ (Negative); Urine RBC <5 /HPF (None Seen); Urine Urobilinogen Normal (Normal)
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
[2024-05-06 08:41] LABS: Blood Morphology Comment NOT SEEN (NOT SEEN); Platelet Estimate ADEQ
[2024-05-06 08:42] LABS: White Blood Cell Scan OK (OK)
[2024-05-06] MEDS ORDERED: ACETAMINOPHEN 325 MG TABLET PO PRN (08:43)
[2024-05-06] MEDS ORDERED: ONDANSETRON 4 MG/2 ML VIAL ONE (08:46)
[2024-05-06] MEDS ORDERED: MORPHINE 4 MG/ML SYR ONE (08:47)
[2024-05-06] MEDS ORDERED: HYDRALAZINE HCL 20 MG/ML VIAL IV PRN (08:49)
[2024-05-06] MEDS: NA CHLORIDE 0.9% 1,000 ML IV SCH (09:00)
[2024-05-06] MEDS: OSELTAMIVIR 75 MG CAP PO SCH (09:00)
[2024-05-06 09:40] LABS: Thyroid Stimulating Hormone 1.79 uIU/mL (0.358-3.740)
[2024-05-06] MEDS: INSULIN REGULAR (HUMAN) 100 UNIT/ML SQ SCH (11:25)
[2024-05-06 11:33] VITALS: BMI 40.4
[2024-05-06] MEDS: PNEUMOCOCCAL VACCINE 0.5 ML IMVAC ONE (12:00)
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
[2024-05-06] MEDS: HYDROCODONE/APAP 5/325 MG TAB PO PRN (17:25)
[2024-05-06] MEDS: ACETAMINOPHEN 500 MG TAB PO PRN (21:18)
[2024-05-06] MEDS: Levofloxacin500mg IV 500 MG/100 ML BAG IV SCH (21:18)
[2024-05-07 06:00] LABS: Absolute Basophils 0.1 K/uL (0-0.5); Absolute Eosinophils 0.2 K/uL (0-0.5); Absolute Lymphocytes (CBC) 2.7 K/uL (0.7-4.9); Absolute Neutrophil 9.3 K/uL (1.8-8.0); Basophils % 0.5 % (0-1.3); Eosinophils % 1.5 % (0-4.4); Hematocrit 40.5 % (39.6-49.0); Hemoglobin 13.4 g/dL (13.6-17.9); Lymphocytes % 20.5 % (15.3-44.8); MCH 29.3 pg (27.0-35.0); MCV 88.8 fL (80-100); MPV 8.5 fL (7.6-11.3); Monocytes % 7.8 % (3.3-12.3); Neutrophils % 69.7 % (41.7-73.7); Nucleated Red Blood Cells % 0.2 % (0-0); Platelets 310 thou/uL (152-406); RBC Red Blood Cell Count 4.56 M/uL (4.33-5.43); Red Cell Distribution Width 14.7 % (12.1-15.2)
[2024-05-07 06:12] LABS: Magnesium 1.8 mg/dL (1.6-2.4); Phosphorus 2.4 mg/dL (2.5-4.9)
[2024-05-07] MEDS: MAGNESIUM SULFATE 1 gm IVPB 1 GM/100 ML BAG IV ONE (07:34)
[2024-05-07] MEDS: POTASS/SODIUM PHOSPHATE 1 PKT POWD.PACK PO SCH (07:35)
--- NOTE | 2024-05-07 10:31 | EKG ---
Test Date: 2024-05-06 Test Time: 13:59:57 [place]: [facility] MEASUREMENT RESULTS: Intervals: Rate: 84 [place]: 166 QRSD: 88 QT: 372 QTc: 439 [place]: P: 29 [place]: 166 QRS: -25 T: 5 INTERPRETIVE STATEMENTS: Normal sinus rhythm Voltage criteria for left ventricular hypertrophy Abnormal ECG Compared to ECG 09/16/2023 18:43:21 Left anterior fascicular block no longer present T-wave abnormality no longer present Electronically Signed On 05-07-24 10:30:15 CDT by Bhavik Miles
--- NOTE | 2024-05-07 12:56 | RAD REPORT ---
CLINICAL HISTORY: PAIN COMPARISON: 09/17/2023 TECHNIQUE: Axial CT of the head obtained from the skull apex to the skull base without contrast. Axi al CT images of the cervical spine obtained without contrast. CT of the chest, abdomen and pelvis per formed following IV administration of iodinated contrast. This exam was performed according to our de partmental dose-optimization program, which includes automated exposure control, adjustment of the mA and/or kV according to patient size and/or use of iterative reconstruction technique. FINDINGS: Head CT: No acute intracranial hemorrhage identified. No mass, mass effect, shift of the midline, abnormal ext ra-axial fluid collection or CT evidence of acute ischemic change identified. The ventricular system is unremarkable. No acute abnormalities of the supratentorial white matter, basal ganglia, cerebell um, or brainstem. Mucosal thickening of paranasal sinuses. Opacity in the right mastoid air cells. No skull fracture id entified. Visualized orbits and globes are unremarkable. Cervical CT : Alignment of the cervical spine is maintained without evidence of subluxation. The atlantoaxial, at lantodental, and occipitoatlantal intervals are preserved. No fracture identified. Vertebral body h eight preserved. Prevertebral soft tissues are unremarkable. Posterior disc osteophyte complex at C5/6 mildly encroach on the anterior spinal canal. No cervical lymphadenopathy. Chest: Thyroid: No abnormalities of the visualized thyroid. Great Vessels: Great vessels have normal anatomic configuration. Thoracic Aorta: No abnormalities of the thoracic aorta identified. Pulmonary arteries: No filling defects. Heart: No cardiomegaly, significant pericardial effusion, or coronary artery atherosclerosis Lymph Nodes: No enlarged mediastinal lymph nodes identified. Esophagus: No abnormalities of the esophagus identified Other: No additional findings. Lungs: Scattered patchy bilateral airspace opacities. Pleura: No pleural effusion or pneumothorax. Trachea/Airways: No abnormalities of the visualized trachea or airways. Abdomen: Liver: Hepatomegaly with decreased density. Gallbladder: No calcified gallstones. Spleen, Pancreas, and Adrenal Glands: The spleen, pancreas, and adrenal glands are unremarkable. Kidneys: No hydronephrosis or obstructing ureteral calculus. Vasculature: The aorta and IVC have normal caliber and position. The portal vein is patent. The pro ximal visceral and renal arteries are patent. Stomach: The stomach and duodenum have normal course. Other: No free intraperitoneal air. No free fluid or lymphadenopathy. Mild diastases of the abdom inis rectus muscles. Pelvis: Bladder: Urinary bladder is unremarkable. Bowel: No dilated loops of large or small bowel. Appendix: Normal appendix. Pelvis: Prostate is not enlarged. Bones: Multilevel endplate spondylosis, disc height narrowing, and facet arthropathy. No acute osseou s abnormalities identified. Stable appearance of the L2 vertebral body with mild left lateral brandi faustina. IMPRESSION: 1. No acute intracranial abnormality identified. 2. No acute fracture or subluxation of the cervical spine. 3. Scattered patchy bilateral airspace opacities. Commonly reported imaging features of viral pneum onia are present. Other processes such as influenza pneumonia and organizing pneumonia, as can be see n with drug toxicity and connective tissue disease, can cause similar imaging pattern. 4. Hepatomegaly and hepatic steatosis. Electronically signed by: Melecio Potter DO 05/06/2024 06:52 AM CDT RP [id number] Due to temporary technical issues with the PACS/Fluency reporting system, reports are being signed by the in house radiologists without review as a courtesy to insure prompt reporting. The interpreting radiologist is fully responsible for the content of the report.
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
--- NOTE | 2024-05-07 15:03 | RAD REPORT ---
EXAM DESCRIPTION: CT - Head Brain Wo Cont - 05/07/2024 2:18 pm CLINICAL HISTORY: Blurred vision COMPARISON: May 06, 2024 TECHNIQUE: Computed axial tomography of the head was obtained. IV contrast was not requested. All CT scans are performed using dose optimization technique as appropriate and may include automated exposure control or mA/KV adjustment according to patient size. FINDINGS: Right parietal scalp laceration. An intracranial bleed is not seen The ventricles are normal in caliber No extra-axial fluid collection is noted. No significant hypodensity within the brain noted Fluid within the right mastoids may indicate mastoiditis IMPRESSION: No acute intracranial abnormality is seen If patient's symptoms persist MRI of the brain would be recommended
--- NOTE | 2024-05-07 15:14 | RAD REPORT ---
EXAM DESCRIPTION: Andrey Angio05/07/2024 2:18 pm CLINICAL HISTORY: Blurred vision COMPARISON: None TECHNIQUE: 100 cc Isovue [address] angiogram of the neck was obtained. 3D MIPS reconstruction performed. All CT scans are performed using dose optimization technique as appropriate and may include automated exposure control or mA/KV adjustment according to patient size. FINDINGS: Visualized aortic arch and great vessels unremarkable Common carotid, internal carotid and external carotid arteries bilaterally unremarkable Vertebral arteries unremarkable No dissection is seen. No high-grade stenosis Nascet crieria Mild stenosis 0 to 49 % Moderate stenosis 50-69% Severe stenosis 70-99% IMPRESSION: No significant vascular abnormality is displayed
--- NOTE | 2024-05-07 15:14 | RAD REPORT ---
EXAM DESCRIPTION: CTHead angio05/07/2024 2:18 pm CLINICAL HISTORY: Double vision COMPARISON: none TECHNIQUE: 100 cc Isovue [address] angiogram of the head was obtained. 3D MIPS reconstruction performed. All CT scans are performed using dose optimization technique as appropriate and may include automated exposure control or mA/KV adjustment according to patient size. FINDINGS: The basilar, anterior cerebral, middle cerebral and posterior cerebral arteries do not dem onstrate a significant stenosis Mild calcified plaque distal internal carotid arteries An aneurysm is not seen No large vessel occlusion IMPRESSION: No significant vascular abnormality is displayed
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
[2024-05-08 06:45] LABS: Anion Gap 7.9 mEq/L (5.0-15.0); Magnesium 2.4 mg/dL (1.6-2.4); Phosphorus 2.7 mg/dL (2.5-4.9); Potassium 3.9 mEq/L (3.5-5.1)
[2024-05-08 06:53] LABS: Hematocrit 44.6 % (39.6-49.0); Hemoglobin 14.3 g/dL (13.6-17.9); MCH 28.4 pg (27.0-35.0); MCV 88.7 fL (80-100); MPV 8.4 fL (7.6-11.3); Platelets 286 thou/uL (152-406); RBC Red Blood Cell Count 5.03 M/uL (4.33-5.43); Red Cell Distribution Width 14.8 % (12.1-15.2)
[2024-05-08 06:54] LABS: Absolute Basophils 0.1 K/uL (0-0.5); Absolute Eosinophils 0.3 K/uL (0-0.5); Absolute Lymphocytes (CBC) 2.2 K/uL (0.7-4.9); Absolute Monocytes 0.8 K/uL (0.1-1.3); Absolute Neutrophil 8.8 K/uL (1.8-8.0); Basophils % 0.7 % (0-1.3); Eosinophils % 2.4 % (0-4.4); Lymphocytes % 18.4 % (15.3-44.8); Monocytes % 6.2 % (3.3-12.3); Neutrophils % 72.3 % (41.7-73.7)
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
[2024-05-09 06:44] LABS: Anion Gap 7.7 mEq/L (5.0-15.0); Phosphorus 4.1 mg/dL (2.5-4.9); Potassium 3.7 mEq/L (3.5-5.1)
[2024-05-09 07:08] LABS: Hematocrit 44.3 % (39.6-49.0); Hemoglobin 14.5 g/dL (13.6-17.9); MCH 29.2 pg (27.0-35.0); MCHC 32.8 g/dL (32.0-36.0); MCV 89.1 fL (80-100); MPV 9.2 fL (7.6-11.3); Neutrophils % 73.2 % (41.7-73.7); Platelets 313 thou/uL (152-406); RBC Red Blood Cell Count 4.97 M/uL (4.33-5.43); Red Cell Distribution Width 14.5 % (12.1-15.2)
[2024-05-09 07:09] LABS: Absolute Basophils 0.1 K/uL (0-0.5); Absolute Eosinophils 0.3 K/uL (0-0.5); Absolute Lymphocytes (CBC) 2.4 K/uL (0.7-4.9); Absolute Monocytes 0.6 K/uL (0.1-1.3); Absolute Neutrophil 9.3 K/uL (1.8-8.0); Eosinophils % 2.4 % (0-4.4); Lymphocytes % 18.4 % (15.3-44.8); Nucleated Red Blood Cells % 0.2 % (0-0)
[2024-05-09 08:38] VITALS: BP 132/87; TEMP 97.9
[2024-05-09 08:58] VITALS: O2SAT 95
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
[2024-05-09] MEDS ORDERED: Levofloxacin 750mg IV 750 MG/150 ML BAG IV SCH (21:00)
== END 2024-05-09 11:55 | disposition home or self-care (01) | DRG 981 ==
LOC: ER 05:15 → ERHOLD 08:43 → 2ND 13:47 → OBSVTOIN 05-07 19:26
PROVIDERS: ADMIT Hospitalist; ATTEND Internal Medicine
PROC: 0JQ00ZZ Repair Scalp Subcutaneous Tissue and Fascia, Open Approach (ICD-10-PCS; principal; 2024-05-07)
PROC: 0JQK0ZZ Repair Left Hand Subcutaneous Tissue and Fascia, Open Approach (ICD-10-PCS; 2024-05-07)
DX: S27.329A Contusion of lung, unspecified, initial encounter (principal); J10.08 Influenza due to other identified influenza virus with other specified pneumonia; J12.9 Viral pneumonia, unspecified; F10.10 Alcohol abuse, uncomplicated; S61.412A Laceration without foreign body of left hand, initial encounter; S01.01XA Laceration without foreign body of scalp, initial encounter; H53.2 Diplopia; K76.0 Fatty (change of) liver, not elsewhere classified; Z11.52 Encounter for screening for COVID-19; Z79.84 Long term (current) use of oral hypoglycemic drugs; Z91.148 Patient's other noncompliance with medication regimen for other reason; V29.408A Other motorcycle driver injured in collision with unspecified motor vehicles in traffic accident, initial encounter; Y92.488 Other paved roadways as the place of occurrence of the external cause; Y93.9 Activity, unspecified; Y99.9 Unspecified external cause status
CPT/HCPCS: 12001; 36415; 70450; 70496; 70498; 71045; 71260; 72125; 74177; 80048; 80061; 80076; 81001; 82947; 83605; 83690; 83735; 84100; 84439; 84443; 85025; 86850; 86900; 86901; 87040; 87804; 87811; 90471; 93005; 94010; 97116; 97161; 99285; G0378; J0690; J0696; J2001; J2405; J3411; J3475; J7030; J7050; Q9967

== ENCOUNTER 2024-07-25 00:03 | Emergency (ER) | payer SELFPAY ==
[2024-07-25] MEDS ORDERED: KETOROLAC 30 MG/ML INJ ONE (00:24)
[2024-07-25] MEDS ORDERED: HYDROCODONE/APAP 10/325 TAB ONE (00:24)
[2024-07-25] MEDS ORDERED: AMOX/K CLAV 875 MG TAB ONE (00:24)
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
[2024-07-25 00:58] VITALS: O2SAT 100
[2024-07-25 01:00] VITALS: BP 136/92; TEMP 98.6
== END 2024-07-25 00:53 | disposition home or self-care (01) ==
LOC: ER 00:03
DX: K08.89 Other specified disorders of teeth and supporting structures (principal)
CPT/HCPCS: 96372; 99284

== ENCOUNTER 2024-09-29 23:50 | Emergency (ER) | payer SELFPAY ==
[2024-09-30] MEDS ORDERED: ONDANSETRON 4 MG/2 ML VIAL ONE (00:11)
[2024-09-30] MEDS ORDERED: MORPHINE 4 MG/ML SYR ONE (00:12)
[2024-09-30] MEDS ORDERED: ASPIRIN 81 MG CHEWABLE TABLET ONE (00:12)
[2024-09-30 00:26] LABS: Absolute Basophils 0.1 K/uL (0-0.5); Absolute Eosinophils 0.2 K/uL (0-0.5); Absolute Lymphocytes (CBC) 3.4 K/uL (0.7-4.9); Absolute Monocytes 0.7 K/uL (0.1-1.3); Absolute Neutrophil 6.4 K/uL (1.8-8.0); Basophils % 0.9 % (0-1.3); Eosinophils % 1.8 % (0-4.4); Hematocrit 45.9 % (39.6-49.0); Hemoglobin 15.4 g/dL (13.6-17.9); Lymphocytes % 31.6 % (15.3-44.8); MCH 29.3 pg (27.0-35.0); MCHC 33.7 g/dL (32.0-36.0); MCV 87.1 fL (80-100); MPV 8.5 fL (7.6-11.3); Monocytes % 6.4 % (3.3-12.3); Neutrophils % 59.3 % (41.7-73.7); Nucleated Red Blood Cells % 0.3 % (0-0); Platelets 230 thou/uL (152-406); RBC Red Blood Cell Count 5.27 M/uL (4.33-5.43); Red Cell Distribution Width 14.3 % (12.1-15.2)
[2024-09-30 00:27] LABS: PT Prothrombin Time 12.4 SECONDS (9.4-12.5); Protime INR 1.11
[2024-09-30 00:45] LABS: ALT/SGPT 52 U/L (16-61); AST/SGOT 26 U/L (15-37); Albumin 3.5 g/dL (3.4-5.0); Albumin/Globulin Ratio 0.8 (1.1-1.8); Alkaline Phosphatase 83 U/L (45-117); Anion Gap 10.7 mEq/L (5.0-15.0); BUN Blood Urea Nitrogen 5 mg/dL (7-18); Bicarbonate 26 mEq/L (21-32); Bilirubin Total 0.5 mg/dL (0.2-1.0); Globulin 4.2 g/dL (2.3-3.5); Glomerular Filtration Rate 131 ml/min (=/>90); Glucose Level 143 mg/dL (74-106); Magnesium 1.8 mg/dL (1.6-2.4); NT PRO-BNP 13 pg/mL (<125); Potassium 3.7 mEq/L (3.5-5.1); Protein, Total 7.7 g/dL (6.4-8.2); Sodium Level 130 mEq/L (136-145); Troponin High Sensitivity 36.8 pg/mL (<58.9)
[2024-09-30 00:49] LABS: Bilirubin Direct < 0.2 mg/dL (0-0.2); Bilirubin Indirect, Calculated 0.3 mg/dL (0.2-0.8)
[2024-09-30] MEDS ORDERED: methocarbamoL 750 MG TAB ONE (01:03)
[2024-09-30] MEDS ORDERED: NA CHLORIDE 0.9% 1,000 ML ONE (01:03)
[2024-09-30] MEDS ORDERED: KETOROLAC 30 MG/ML INJ ONE (01:03)
[2024-09-30 02:04] LABS: C-Reactive Protein 6.14 mg/L (<3.00); Thyroid Stimulating Hormone 2.69 uIU/mL (0.358-3.740)
[2024-09-30] MEDS ORDERED: HYDROCODONE/APAP 10/325 TAB ONE (03:35)
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
[2024-09-30 07:31] VITALS: TEMP 97.9
[2024-09-30 07:33] VITALS: O2SAT 96
[2024-09-30 07:35] VITALS: BP 106/65
--- NOTE | 2024-10-01 14:14 | EKG ---
Test Date: 2024-09-29 Test Time: 23:56:28 [employer] Architect: NAZARIO MEASUREMENT RESULTS: Intervals: Rate: 88 CO: 166 QRSD: 106 QT: 370 QTc: 447 [place]: P: 29 CO: 166 QRS: -39 T: 42 INTERPRETIVE STATEMENTS: Normal sinus rhythm Left axis deviation Abnormal ECG Compared to ECG 05/06/2024 13:59:57 Left-axis deviation now present Left ventricular hypertrophy no longer present Electronically Signed On 10-01-24 14:12:03 NOTE KEEPER by Domenic Fisher
== END 2024-09-30 03:53 | disposition home or self-care (01) ==
LOC: ER 23:50
DX: R07.89 Other chest pain (principal)
CPT/HCPCS: 36415; 80048; 80076; 82947; 83735; 83880; 84439; 84443; 84484; 85025; 85610; 86140; 93005; 96361; 96374; 96375; 99284; J2405; J7030

== ENCOUNTER 2025-01-16 05:15 | Emergency (ER) | payer SELFPAY ==
[2025-01-16] MEDS ORDERED: LIDOCAINE 2% W/EPI 1:200,000 MPF 20 ML VIAL IM ONE (05:20)
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
[2025-01-16] MEDS ORDERED: AMOX/K CLAV 875 MG TAB ONE (05:36)
[2025-01-16] MEDS ORDERED: MORPHINE 4 MG/ML SYR ONE (05:42)
[2025-01-16] MEDS ORDERED: LIDOCAINE 1% 20 ML MDV ONE (05:59)
[2025-01-16] MEDS ORDERED: FENTANYL CITR 100 MCG/2 ML ONE (06:38)
[2025-01-16 07:47] VITALS: BP 129/89; TEMP 98.4; O2SAT 96
== END 2025-01-16 07:00 | disposition home or self-care (01) ==
LOC: ER 05:15
DX: K08.89 Other specified disorders of teeth and supporting structures (principal)
CPT/HCPCS: J2003; J3010